=== PATIENT | male | born 1970 | race African-American/Black ===

== ENCOUNTER 2017-03-24 11:17 | Emergency (ER) ==
[2017-03-24 11:24] VITALS: BP 169/94; TEMP 98.5; BMI 36.0
--- NOTE | 2017-03-24 11:34 | ED.PDOC ---
General ED Provider: Dr. BARBRA MOSLEY JR Chief Complaint: Knee Pain/Injury Stated Complaint: CHRONIC RIGHT KNEE YESTERDAY STARTED HURTING AT WORK... HURTING ONE WEEK [facility] [employer][End]1 day 98.5 20 97% 168/ 94 8/10 PAIN WORSE WHEN WALKS ON IT[End] Time Seen by Physician: 11:28 (limping) Mode of Arrival: Walk-In Information Source: Patient Exam Limitations: No limitations Nursing and Triage Documentation Reviewed and Agree: No Review of Systems - Review Of Systems Constitutional: Reports: No symptoms Eyes: Reports: No symptoms Ears, Nose, Mouth, Throat: Reports: No symptoms Respiratory: Reports: No symptoms Cardiac: Reports: No symptoms GI: Reports: No symptoms : Reports: No symptoms Musculoskeletal: Reports: Joint pain (left ankle mmedial malleolus and patellar balotment mild effusion), Joint swelling Skin: Reports: No symptoms Neurological: Reports: No symptoms Endocrine: Reports: No symptoms Hematologic/Lymphatic: Reports: No symptoms All Other Systems: Other Past Medical History - Past Medical History Previously Healthy: Yes Endocrine: Reports: None Cardiovascular: Reports: None Respiratory: Reports: None Hematological: Reports: None Gastrointestinal: Reports: None Genitourinary: Reports: None Neuro/Psych: Reports: None Musculoskeletal: Reports: Arthritis (chronic low grade knee pain wrse after picking things up off ground) Cancer: Reports: None - Surgical History General Surgical History: Reports: None - Family History Family History: Reports: Unknown - Social History Smoking Status: Never smoker Hx Substance Use: No Alcohol Screening: None - Immunizations Tetanus Shot up to Date: Yes Physical Exam - Physical Exam Appearance: Well-appearing, Obese Pain Distress: Moderate Neck: Supple Respiratory: Airway patent Musculoskeletal: Normal strength, ROM intact, Edema (left knee, not at ankle but medial malleolus sightly tender) Skin: Warm, Dry, Normal color Neurological: Sensation intact, Motor intact, Reflexes intact, Cranial nerves intact, Alert, Oriented Psychiatric: Affect appropriate, Mood appropriate Critical Care Note - Critical Care Note Total Time (mins): 0 Course - Course Orders, Labs, Meds: Orders Category Date Time Status KNEE, LEFT 4 VIEWS Stat RADS 03/24/17 11:27 Completed Vital Signs: Temp Pulse Resp BP Pulse Ox 03/24/17 11:17 98.5 F 95 H 20 169/94 H 97 Departure - Departure Time of Disposition: 12:14 Disposition: HOME SELF-CARE Discharge Problem: Knee pain Ankle sprain Qualifiers: Encounter type: initial encounter Involved ligament of ankle: unspecified ligament Laterality: left Qualifier Code: (S93.402A) Sprain of unspecified ligament of left ankle, initial encounter Instructions: Swollen Knee Joint (ED), Ankle Sprain (ED) Condition: Good Pt referred to PMD for follow-up: Yes Additional Instructions: reza wrap for 6-12 hours a day for ankle ice packs three to four times a day for 20 minutes to ankle and knee no weight left knee for three to four days Allergies/Adverse Reactions: Allergies No Known Allergies Allergy (Unverified 03/24/17 11:25) Home Medications: Ambulatory Orders 1 [No Reported Medications] 03/24/17
--- NOTE | 2017-03-24 11:54 | DI ---
EXAM: Four views of the left knee HISTORY: Left knee demonstrates increased pain. COMPARISON: None FINDINGS: Medial and lateral compartments are normal with minimal medial compartmental narrowing. P atella is normal in position with a small inferior osteophyte. The soft tissues are normal. There is no lytic or blastic lesion. There is no displaced fracture or dislocation. IMPRESSION: Minimal medial compartmental narrowing and a small inferior patellar osteophyte.
== END 2017-03-24 12:34 | disposition home or self-care (01) ==
LOC: ED 11:17
DX: S93.402A Sprain of unspecified ligament of left ankle, initial encounter (principal); M25.562 Pain in left knee; G89.29 Other chronic pain
CPT/HCPCS: 99282